=== PATIENT | male | born 1945 | race Caucasian/White ===

== ENCOUNTER → 2016-09-07 | Outpatient (CLI) | payer MEDICARE, OTHER ==
[~2016-09-07] MED LIST: ALLO100T PO; ASPI-586 PO; ASPI325T4 PO; ATOR20TA PO; CHLO25TA2 PO; CHLO4TAB PO; DOXA1TAB2 PO; FNST5T PO; FOLI1TAB7 PO; GUAN2TAB PO; HYDR-3702 PO; INDO25CA PO; LOSA100T3 PO; METF500T PO; METF500T4 PO; METO-274 PO; NEBI10TA PO; NF-LISIN40 PO; NIAC500T9 PO; OMG1KC PO; PRAS10TA6 PO; RANI150T11 PO; SPRN25T PO; TRIA1TAB18 PO; UBID1CAP51 PO; UBID200C2 PO; [UNRECOGNIZED DRUG - OTHER]
[2016-09-07 12:03] LABS: MEAN CORPUSCULAR HGB CONC 33.5 g/dL (31.0-37.0); MEAN CORPUSCULAR VOLUME 95 FL (80-100); MEAN PLATELET VOLUME 9.9 FL (6.0-9.5); PLATELET COUNT 158 10^3uL (150-450); WHITE BLOOD COUNT 7.26 10^3uL (4.0-11.0)
[2016-09-07 12:05] LABS: MEAN CORPUSCULAR HEMOGLOBIN 31.8 PG (26.0-34.0)
[2016-09-07 12:09] LABS: BAND NEUTROPHILS % 0 % (0-6); EOSINOPHILS % 25 % (0-4); LYMPHOCYTES # 1.5 #; MONOCYTES # 0.6 #; MONOCYTES % 8 % (3-11); RBC MORPH NORMAL (NORMAL); SEGMENTED NEUTROPHILS % 43 % (51-67); TOTAL CELLS COUNTED 100
[2016-09-07 12:14] LABS: BILIRUBIN,URINE Negative (Negative); CLARITY,URINE Clear; COLOR,URINE Yellow; GLUCOSE, URINE (UA) Negative (Negative); LEUKOCYTE ESTERASE ,URINE Negative (Negative); UROBILINOGEN,URINE 0.2 mg/dL (0.2-1.0)
[2016-09-07 12:20] LABS: ALBUMIN 4.4 g/dL (3.4-5.0); ANION GAP 17.1 MEQ/L (3-15); CALCULATED IONIZED CALCIUM 4.1 mg/dL (3.8-4.6); TOTAL PROTEIN 7.5 g/dL (6.4-8.5)
[2016-09-07 12:39] LABS: ERYTHROCYTE SEDIMENTATION RT* 19 mm/hr (0-19)
== END ==
LOC: LAB 11:48
PROVIDERS: ATTEND Family Medicine
DX: R10.84 Generalized abdominal pain (principal); E11.9 Type 2 diabetes mellitus without complications; A09 Infectious gastroenteritis and colitis, unspecified; E03.8 Other specified hypothyroidism
CPT/HCPCS: 36415; 80053; 81003; 82150; 83036; 83690; 84443; 85025; 85652

== ENCOUNTER → 2016-09-11 | Outpatient (CLI) | payer MEDICARE, OTHER ==
--- NOTE | 2016-09-11 10:46 | Diagnostic Imaging Report ---
INDICATION: Pelvic pain. FINDINGS: Ultrasound of the pelvis shows a normal-appearing contour of the bladder with no overt filling defect in the bladder. There are bilateral ureteral jets. The prevoid volume is 119 cc and the post void volume is 9 cc. The prostate gland is not appreciably enlarged measuring 4.0 x 2.6 x 3.5 cm. IMPRESSION: Unremarkable appearing bladder with no significant post void residual. Dictated by: Dictated on workstation # [id number]
--- NOTE | 2016-09-11 12:04 | Diagnostic Imaging Report ---
INDICATION: Abdominal pain. TECHNIQUE: Abdominal sonography was performed in the routine fashion. FINDINGS: The liver shows diffuse increased echogenicity, compatible with fatty infiltration. There is no focal liver lesion seen. The gallbladder shows some mild sludge but no stones or wall thickening. The common duct measures 4.6 mm. The pancreas is unremarkable to the extent seen. The spleen is top limits of normal in size measuring 12 cm. There is no focal splenic lesion. The aorta is nonaneurysmal. The IVC is not well-seen. The right kidney measures 10.2 cm in length and shows no hydronephrosis. There appear to be small nonocclusive stones overlying the midpole of the right kidney. The left kidney measures 10.2 x 6.5 x 4.5 cm and shows no hydronephrosis. There also appear to be nonocclusive stones in the left kidney centrally. There is no ascites. IMPRESSION: Fatty infiltration of the liver. There is some mild sludge in the gallbladder but no stones, wall thickening, or biliary dilatation. The spleen is top limits of normal in size. There is no hydronephrosis on either side but there do appear to be small nonocclusive stones. Dictated by: Dictated on workstation # [id number]
== END ==
LOC: RAD 07:16
PROVIDERS: ATTEND Family Medicine
DX: R10.84 Generalized abdominal pain (principal); K76.0 Fatty (change of) liver, not elsewhere classified
CPT/HCPCS: 76700; 76856